=== PATIENT | male | born 1990 | race Caucasian/White ===

== ENCOUNTER 2017-07-02 21:07 | Emergency (ER) | payer MEDICAID ==
[~2017-07-02] VITALS: Ht 160 cm; Wt 50.0 kg
[2017-07-02 21:31] VITALS: BP 138/90; PULSE 81; RESP 18; TEMP 98.1; O2SAT 98
--- NOTE | 2017-07-02 21:41 | PD ---
HPI Chief Complaint: Alcohol/Drug Intoxication Time Seen by Provider: 21:30 Travel History International Travel<30 days: No Contact w/Intl Traveler<30days: No Traveled to known affect area: No History of Present Illness HPI This is a 27-year-old male who presents under Deutsch act initiated by the [employer] Department. According to his paperwork he told his sister that he was going to shoot himself. The patient was initially brought to [facility] however he was deemed to be outside of their scope of care and so he was sent here for evaluation. He reports a history of diabetes, prescribed insulin, takes it occasionally. He reports that he checks his blood sugar "every other day" and his blood sugar today was in the 80s. He feels well. He endorses drinking Alexi Calvillo this morning. Denies any illicit substance use. Denies any access to firearms. Denies any suicidal or homicidal ideation, auditory or visual hallucination. He has no medical complaints at this time. [facility] Past Medical History Diabetes: Yes Social History Alcohol Use: Yes Tobacco Use: Yes Allergies-Medications (Allergen,Severity, Reaction): Coded Allergies: No Known Allergies (Verified Allergy, Unknown, 07/02/17) Reported Meds & Prescriptions Reported Meds & Active Scripts Active No Active Prescriptions or Reported Medications Review of Systems Except as stated in HPI: all other systems reviewed are Neg Physical Exam Narrative GENERAL: Well-developed well-nourished male in no acute distress. SKIN: Warm and dry. HEAD: Atraumatic. Normocephalic. EYES: Pupils equal and round. No scleral icterus. No injection or drainage. ENT: No nasal bleeding or discharge. Mucous membranes pink and moist. NECK: Trachea midline. No JVD. CARDIOVASCULAR: Regular rate and rhythm. No murmur appreciated. RESPIRATORY: No accessory muscle use. Clear to auscultation. Breath sounds equal bilaterally. GASTROINTESTINAL: Abdomen soft, non-tender, nondistended. Hepatic and splenic margins not palpable. MUSCULOSKELETAL: No obvious deformities. No clubbing. No cyanosis. No edema. NEUROLOGICAL: Awake and alert. No obvious cranial nerve deficits. Motor grossly within normal limits. Normal speech. PSYCHIATRIC: Appropriate mood and affect; insight and judgment normal. Data Data Last Documented VS Vital Signs Date Time Temp Pulse Resp B/P (MAP) Pulse Ox O2 Delivery O2 Flow Rate FiO2 07/02/17 21:31 98.1 81 18 138/90 (106) 98 Orders Orders Blood Glucose (07/02/17 21:30) Complete Blood Count With Diff (07/02/17 21:38) Comprehensive Metabolic Panel (07/02/17 21:38) Psych Screen (07/02/17 21:38) Drug Screen, Random Urine (07/02/17 21:38) Alcohol (Ethanol) (07/02/17 21:38) Labs Laboratory Tests Test 07/02/17 21:40 White Blood Count 8.2 TH/MM3 Red Blood Count 5.45 MIL/MM3 Hemoglobin 18.1 GM/DL Hematocrit 52.0 % Mean Corpuscular Volume 95.4 FL Mean Corpuscular Hemoglobin 33.2 PG Mean Corpuscular Hemoglobin Concent 34.8 % Red Cell Distribution Width 14.3 % Platelet Count 234 TH/MM3 Mean Platelet Volume 8.2 FL Neutrophils (%) (Auto) 52.4 % Lymphocytes (%) (Auto) 33.9 % Monocytes (%) (Auto) 11.4 % Eosinophils (%) (Auto) 1.1 % Basophils (%) (Auto) 1.2 % Neutrophils # (Auto) 4.3 TH/MM3 Lymphocytes # (Auto) 2.8 TH/MM3 Monocytes # (Auto) 0.9 TH/MM3 Eosinophils # (Auto) 0.1 TH/MM3 Basophils # (Auto) 0.1 TH/MM3 CBC Comment DIFF FINAL Differential Comment Blood Urea Nitrogen 5 MG/DL Creatinine 0.84 MG/DL Random Glucose 91 MG/DL Total Protein 7.7 GM/DL Albumin 4.1 GM/DL Calcium Level 8.8 MG/DL Alkaline Phosphatase 102 U/L Aspartate Amino Transf (AST/SGOT) 34 U/L Alanine Aminotransferase (ALT/SGPT) 35 U/L Total Bilirubin 0.3 MG/DL Sodium Level 141 MEQ/L Potassium Level 4.1 MEQ/L Chloride Level 107 MEQ/L Carbon Dioxide Level 24.8 MEQ/L Anion Gap 9 MEQ/L Estimat Glomerular Filtration Rate 111 ML/MIN Ethyl Alcohol Level 139 MG/DL [facility] Medical Decision Making Medical Screen Exam Complete: Yes Emergency Medical Condition: Yes Medical Record Reviewed: Yes Differential Diagnosis Substance induced mood disorder, intoxication, acute psychosis, adjustment reaction, major depressive disorder Narrative Course 27-year-old male presents under Deutsch act for psychiatric evaluation. His blood sugar is 93. Mental health screening discussed with the patient. Psychiatric screen ordered. The patient's alcohol level is elevated. His other lab work is unremarkable. He is medically cleared for psychiatric disposition. Diagnosis Primary Impression: Alcohol intoxication Additional Impression: Medical clearance for psychiatric admission Scripts No Active Prescriptions or Reported Meds Hans Lanier Jul 02, 2017 21:41
[2017-07-02 22:02] LABS: AUTOMATED NEUTROPHIL # 4.3 TH/MM3 (1.8-7.7); BASOPHIL # 0.1 TH/MM3 (0-0.2); BASOPHIL % 1.2 % (0.0-2.0); EOSINOPHIL # 0.1 TH/MM3 (0-0.4); EOSINOPHIL % 1.1 % (0.0-4.0); HEMO FLAGS DIFF FINAL; LYMPH % 33.9 % (9.0-44.0); LYMPHOCYTE # 2.8 TH/MM3 (1.0-4.8); MEAN CELL VOLUME 95.4 FL (80.0-100.0); MEAN CORPUSCULAR HEMOGLOBIN 33.2 PG (27.0-34.0); MEAN CORPUSCULAR HGB CONC 34.8 % (32.0-36.0); MONO % 11.4 % (0.0-8.0); NEUT % 52.4 % (16.0-70.0); PLATELET COUNT 234 TH/MM3 (150-450); RED BLOOD COUNT 5.45 MIL/MM3 (4.50-5.90); RED CELL DISTRIBUTION WIDTH 14.3 % (11.6-17.2); WHITE BLOOD COUNT 8.2 TH/MM3 (4.0-11.0)
[2017-07-02 22:19] LABS: ALT (GPT) 35 U/L (12-78); ANION GAP 9 MEQ/L (5-15); AST (GOT) 34 U/L (15-37); BICARBONATE 24.8 MEQ/L (21.0-32.0); BLOOD UREA NITROGEN 5 MG/DL (7-18); CHLORIDE 107 MEQ/L (98-107); GLOMERULAR FILTRATION RATE 111 ML/MIN (>89); POTASSIUM 4.1 MEQ/L (3.5-5.1); SODIUM (NA) 141 MEQ/L (136-145)
[2017-07-02 22:22] LABS: ALCOHOL 139 MG/DL (0-5); ALKALINE PHOSPHATASE 102 U/L (45-117); TOTAL BILIRUBIN ADULT 0.3 MG/DL (0.2-1.0)
[2017-07-03 01:26] VITALS: BP 116/78; PULSE 78; RESP 18; O2SAT 99
[2017-07-03 05:14] VITALS: BP 107/78; PULSE 78; RESP 16; TEMP 98; O2SAT 99
--- NOTE | 2017-07-03 12:55 | PD ---
Data Data Last Documented VS Vital Signs Date Time Temp Pulse Resp B/P (MAP) Pulse Ox O2 Delivery O2 Flow Rate FiO2 07/03/17 05:14 98.0 78 16 107/78 (88) 99 Room Air Orders Orders Blood Glucose (07/02/17 21:30) Complete Blood Count With Diff (07/02/17 21:38) Comprehensive Metabolic Panel (07/02/17 21:38) Psych Screen (07/02/17 21:38) Drug Screen, Random Urine (07/02/17 21:38) Alcohol (Ethanol) (07/02/17 21:38) Diet Regular Basic (07/03/17 Breakfast) Ed Discharge Order (07/03/17 12:53) Labs Laboratory Tests Test 07/02/17 21:40 White Blood Count 8.2 TH/MM3 Red Blood Count 5.45 MIL/MM3 Hemoglobin 18.1 GM/DL Hematocrit 52.0 % Mean Corpuscular Volume 95.4 FL Mean Corpuscular Hemoglobin 33.2 PG Mean Corpuscular Hemoglobin Concent 34.8 % Red Cell Distribution Width 14.3 % Platelet Count 234 TH/MM3 Mean Platelet Volume 8.2 FL Neutrophils (%) (Auto) 52.4 % Lymphocytes (%) (Auto) 33.9 % Monocytes (%) (Auto) 11.4 % Eosinophils (%) (Auto) 1.1 % Basophils (%) (Auto) 1.2 % Neutrophils # (Auto) 4.3 TH/MM3 Lymphocytes # (Auto) 2.8 TH/MM3 Monocytes # (Auto) 0.9 TH/MM3 Eosinophils # (Auto) 0.1 TH/MM3 Basophils # (Auto) 0.1 TH/MM3 CBC Comment DIFF FINAL Differential Comment Blood Urea Nitrogen 5 MG/DL Creatinine 0.84 MG/DL Random Glucose 91 MG/DL Total Protein 7.7 GM/DL Albumin 4.1 GM/DL Calcium Level 8.8 MG/DL Alkaline Phosphatase 102 U/L Aspartate Amino Transf (AST/SGOT) 34 U/L Alanine Aminotransferase (ALT/SGPT) 35 U/L Total Bilirubin 0.3 MG/DL Sodium Level 141 MEQ/L Potassium Level 4.1 MEQ/L Chloride Level 107 MEQ/L Carbon Dioxide Level 24.8 MEQ/L Anion Gap 9 MEQ/L Estimat Glomerular Filtration Rate 111 ML/MIN Ethyl Alcohol Level 139 MG/DL MDM Supervised Visit with LIVAN: Yes Narrative Course The history, exam, and medical decision-making in the associated midlevel provider note were completed with my assistance. I reviewed and agree with the findings presented. I attest that I had a [id number] encounter with the patient on the same day, and personally performed and documented my assessment and findings in the medical record. *My assessment and Findings: This is a 27-year-old male who presents to the emergency department having made suicidal statements when he was intoxicated last evening. He is under a Deutsch act by police. Currently patient is clinically sober. He says he drank too much checked and nails last night and he was just "talking shift". He didn't mean what he said and he says he doesn' t want to harm himself. He is not suicidal. He really wants to go home. I don 't think he meets Deutsch act criteria as his chief presentation was alcohol intoxication. I think the patient can be discharged home and he was given resources for Dimitri Tolentino. Diagnosis Primary Impression: Alcohol intoxication Qualified Codes: F10.920 - Alcohol use, unspecified with intoxication, uncomplicated Patient Instructions: General Instructions Additional Instruction: If you have thoughts of hurting yourself or others return to the emergency department. Follow up with Ellen Tolentino in regards to psychiatric or substance related issues at: [address] [place] [id number] Med/Other Pt SpecificInfo: No Change to Meds Scripts No Active Prescriptions or Reported Meds Disposition: 01 DISCHARGE HOME Condition: Stable Elyse Briggs MD Jul 03, 2017 12:55
== END 2017-07-03 13:19 | disposition home or self-care (01) ==
LOC: NEPD 21:07
DX: F10.129 Alcohol abuse with intoxication, unspecified (principal); E11.9 Type 2 diabetes mellitus without complications; Z72.0 Tobacco use
CPT/HCPCS: 80053; 80307; 85025; 99283